=== PATIENT | female | born 1995 | race Caucasian/White ===

== ENCOUNTER 2017-04-27 22:02 | Emergency (ER) | payer OTHER ==
[~2017-04-27] VITALS: Ht 165.1 cm; Wt 64.5 kg
[2017-04-27 22:15] VITALS: BP 112/73; PULSE 75; RESP 16; O2SAT 98
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
[2017-04-28 00:48] VITALS: BP 97/45; PULSE 79; RESP 23; O2SAT 100
[2017-04-28 00:53] VITALS: BP 107/59; PULSE 89; O2SAT 100
[2017-04-28 00:57] VITALS: BP 116/63; PULSE 93; O2SAT 100
[2017-04-28 02:26] VITALS: BP 119/48; PULSE 77; RESP 21; O2SAT 100
--- NOTE | 2017-04-28 08:27 | DRSVH ---
PROCEDURE: X-RAY CHEST, TWO VIEWS ([id number]) INDICATIONS: sob TECHNIQUE: 2 views of the chest were acquired. COMPARISON: [facility], CR, XR CHEST 2VW, 10/14/2016, 9:40. FINDINGS: Surgical changes and devices: None. Lungs and pleura: No pleural effusions or pneumothorax. Lungs are clear. Mediastinum: Mediastinal contours are normal. Heart size is normal. Bones and chest wall: No suspicious bony abnormalities. Soft tissues appear unremarkable. IMPRESSION: No acute cardiopulmonary disease process. Dictated by: Lea Murillo MD, PhD on 04/28/2017 at 8:25 Approved by: Lea Murillo MD, PhD on 04/28/2017 at 8:25
== END 2017-04-28 02:28 | disposition home or self-care (01) ==
LOC: SED 22:02
DX: R42 Dizziness and giddiness (principal); R25.9 Unspecified abnormal involuntary movements; R06.02 Shortness of breath; R11.0 Nausea; H53.8 Other visual disturbances; R07.9 Chest pain, unspecified; R00.1 Bradycardia, unspecified; Z97.5 Presence of (intrauterine) contraceptive device